=== PATIENT | male | born 1955 | race Caucasian/White ===

== ENCOUNTER 2019-09-28 16:32 | Emergency (ER) | payer MEDICARE, SELFPAY ==
[2019-09-28 16:48] VITALS: BP 180/58; PULSE 77; RESP 16; TEMP 36.6; O2SAT 98
--- NOTE | 2019-09-28 18:12 | ED.WOUNDLAC ---
HPI - Wound/Laceration General Chief Complaint: Wound/Laceration <LORETA Jurado Last Filed: 09/28/19 18:46> Stated Complaint: L HAND LAC <LORETA Jurado Last Filed: 09/28/19 18:46> Time Seen by Provider: 09/28/19 17:12 <LORETA Jurado Last Filed: 09/28/19 18:46> Source: patient <LORETA Jurado Last Filed: 09/28/19 18:46> Mode of arrival: ambulatory <LORETA Jurado Last Filed: 09/28/19 18:46> Limitations: no limitations <LORETA Jurado Last Filed: 09/28/19 18:46> History of Present Illness HPI narrative: This is a 64 year old male that presents to the ER for laceration to the left hand sustained just prior to arrival. Reports he accidentally cut his hand using box cutters. He is unsure of his last tetanus vaccine. Denies fever, numbness, or decreased ROM. <LORETA Jurado Last Filed: 09/28/19 18:46> Related Data Home Medications: Home Medications Medication Instructions Recorded Confirmed fenofibrate micronized mg PO 09/28/19 losartan 09/28/19 metoprolol succinate PO 09/28/19 <LORETA Jurado Last Filed: 09/28/19 18:46> Allergies/Adverse Reactions: Allergies Allergy/AdvReac Type Severity Reaction Status Date / Time No Known Allergies Allergy Unknown Unverified 10/02/14 08:04 <LORETA Jurado Last Filed: 09/28/19 18:46> Review of Systems Review of Systems: Narrative: CONSTITUTIONAL: Denies fever SKIN: Reports laceration MUSCULOSKELETAL: Denies joint pain, or myalgia. NEUROLOGIC: Denies numbness <LORETA Jurado Last Filed: 09/28/19 18:46> All systems reviewed & are unremarkable except as noted in HPI and below <LORETA Jurado Last Filed: 09/28/19 18:46> PMFSH Past Medical History Medical History: Medical History (Updated 09/28/19 @ 18:45 by Sasha Joy PA-C) History of coronary artery disease History of hypertension <Sasha Joy PA-C - Last Filed: 09/28/19 18:46> Exam Narrative: Exam Narrative: GENERAL: Well-appearing, well-nourished, and in no acute distress. HEAD: Normocephalic, atraumatic. EYES: EOMI. EXTREMITIES: Normal range of motion. No edema. Left palm with 3cm linear laceration into subcutaneous tissue over the thenar eminence SKIN: Warm, dry, no rash. NEURO: No focal deficits. Alert and oriented x3. PSYCH: Normal mood and affect <Sasha Joy PA-C - Last Filed: 09/28/19 18:46> Course Vital Signs Vital signs: Vital Signs Temperature 36.6 C 09/28/19 16:48 Pulse Rate 77 09/28/19 16:48 Respiratory Rate 16 09/28/19 16:48 Blood Pressure 180/58 H 09/28/19 16:48 Pulse Oximetry 98 09/28/19 16:48 Temperature 36.6 C 09/28/19 16:48 Pulse Rate 77 09/28/19 16:48 Respiratory Rate 16 09/28/19 16:48 Blood Pressure 180/58 H 09/28/19 16:48 Pulse Oximetry 98 09/28/19 16:48 <Sasha Joy PA-C - Last Filed: 09/28/19 18:46> Vital Signs Temperature 36.6 C 09/28/19 16:48 Pulse Rate 77 09/28/19 16:48 Respiratory Rate 16 09/28/19 16:48 Blood Pressure 180/58 H 09/28/19 16:48 Pulse Oximetry 98 09/28/19 16:48 Temperature 36.6 C 09/28/19 16:48 Pulse Rate 77 09/28/19 16:48 Respiratory Rate 16 09/28/19 16:48 Blood Pressure 180/58 H 09/28/19 16:48 Pulse Oximetry 98 09/28/19 16:48 <Michelle Wahl MD - Last Filed: 09/28/19 22:06> Procedures Laceration Laceration 1: Date: 09/28/19 <Sasha Joy PA-C - Last Filed: 09/28/19 18:46> Time: 18:43 <LORETA Jurado Last Filed: 09/28/19 18:46> Site: hand <LORETA Jurado Last Filed: 09/28/19 18:46> Side (If applicable): left <LORETA Jurado Last Filed: 09/28/19 18:46> Size (cm): 3 <LORETA Jurado Last Filed: 09/28/19 18:46> Description: linear <LORETA Jurado Last Filed:
[2019-09-28] MEDS: TETANUS,DIPHTHERIA,AC PERTUSSIS ADULT (0.5 ML) BOOSTRIX IM (18:51)
== END 2019-09-28 19:17 | disposition home or self-care (01) ==
PROVIDERS: Emergency Provider Emergency Medicine
DX: S61.412A Laceration without foreign body of left hand, initial encounter (principal); I25.10 Atherosclerotic heart disease of native coronary artery without angina pectoris; I10 Essential (primary) hypertension; Z23 Encounter for immunization; W27.0XXA Contact with workbench tool, initial encounter
CPT/HCPCS: 12002; 90471; 90715; 99283

== ENCOUNTER 2020-03-28 15:14 | Outpatient (CLI) | payer MEDICARE, SELFPAY ==
[2020-03-28 16:06] LABS: Basophils Absolute Auto 0.1 K/mm3 (0.0-0.1); Basophils Percent Auto 0.7 % (0.2-1.2); Eosinophils Absolute Auto 0.4 K/mm3 (0-0.3); Eosinophils Percent Auto 5.4 % (0-4.4); Hematocrit 44.8 % (42.0-52.0); Hemoglobin 15.9 g/dL (14.0-18.0); Immature Granulocyte Absolute 0.03 K/mm3 (0.00-0.031); Immature Granulocyte Percent A 0.4 % (0-0.5); Lymphocytes Absolute Auto 1.26 K/mm3 (0.9-3.2); Lymphocytes Percent Auto 18.4 % (18.3-44.2); Mean Corpuscular HGB Conc 35.5 g/dl (32-36); Mean Corpuscular Volume 87.3 fl (80-100); Mean Platelet Volume 10.4 fl (7.4-10.4); Monocytes Absolute Auto 0.7 K/mm3 (0.1-0.6); Monocytes Percent Auto 10.1 % (2.6-8.5); Neutrophils Absolute Auto 4.5 K/mm3 (1.3-6.7); Platelet Count Result 195 k/mm3 (150-375); Red Blood Count 5.13 M/mm3 (4.6-6.20); White Blood Count 6.9 K/mm3 (4.5-10.0)
[2020-03-28 16:17] LABS: Anion Gap 9 mmol/L (8-16); Blood Urea Nitrogen 13 mg/dL (9-20); Calcium 9.1 mg/dL (8.4-10.2); Carbon Dioxide 25 mmol/L (22-30); Chloride 106 mmol/L (98-107); Estimated Glomerular Filt Rate > 60; Glucose 133 mg/dL (75-110); Potassium 4.2 mmol/L (3.4-5.0); Sodium 140 mmol/L (137-145)
== END 2020-03-28 15:15 | disposition home or self-care (01) ==
LOC: ANHLAB 15:18
DX: I25.10 Atherosclerotic heart disease of native coronary artery without angina pectoris (principal)
CPT/HCPCS: 36415; 80048; 85025

== ENCOUNTER 2020-07-23 10:06 | Emergency (ER) | payer MEDICARE, SELFPAY ==
[2020-07-23 10:35] VITALS: BP 163/60; PULSE 83; RESP 18; TEMP 37.2; O2SAT 100
--- NOTE | 2020-07-23 10:37 | ED.EXTPRO ---
HPI - Extremity Problem General Chief complaint: Extremity Problem,Nontraumatic Stated complaint: Right Knee Pain Source: patient and RN notes reviewed Limitations: no limitations History of Present Illness HPI Narrative: The obese patient, who is on several meds and followed by orthopedics, presents with knee pain. Patient states he has about a half a week history since Wednesday, the onset of right lateral joint pain that is mild, worse with motion, better with rest, associated with mild edema. This is similar to prior episode; he has had a prior, opposite left knee replacement in the past & advised he needs the same on the affected joint. No redness, injury known, deformity; patient advised to follow-up with orthopedics-and in the response he tried but cannot get in for a while. Related Data Home Medications Medication Instructions Recorded Confirmed losartan 50 mg PO DAILY 09/28/19 07/23/20 metoprolol succinate 50 mg PO DAILY 09/28/19 07/23/20 aspirin [Adult Low Dose Aspirin] 81 mg PO DAILY 07/23/20 07/23/20 ezetimibe-simvastatin 1 tablet PO DAILY 07/23/20 07/23/20 prasugrel 10 mg PO DAILY 07/23/20 07/23/20 Allergies Allergy/AdvReac Type Severity Reaction Status Date / Time No Known Allergies Allergy Unknown Unverified 10/02/14 08:04 Review of Systems Review of Systems: Narrative: General/Constitutional: No weight loss,fever Eyes: N0: Redness,discharge Ears/Nose/Throat: No: Epistaxis,ear discharge Respiratory: Denies: Hemoptysis Gastrointestinal: No Vomiting, Bleeding-rectal Skin: No Lumps, eruption Neurologic: No Focal Weakness,Sz Hematologic: Denies: Petechiae/Purpura Psychiatric: No: Suicida ideationl All Other Systems: Reviewed and Negative PMFSH Past Medical History Medical History (Updated 07/23/20 @ 11:20 by Robin Dial MD) History of coronary artery disease History of hypertension Comments At time of signature, agree with nursing past medical, surgical, social and family history. There is no relevant family history pertinent to the presenting complaint Exam Narrative: Exam Narrative: General Appearance: Obese/well nourished, No distress EYE: PERRLA, EOMI, Conjunctiva clear Ears: External ear normal, Auditory canal normal Nose: Normal nose, Nares clear Mouth/Throat: Normal appearing, Normal lips: Supple Respiratory: Airway patent, No respiratory distress MS knee: Normal strength (mostly intact, limited flexion/extension by pain), Tenderness ( laterally jt line, with mild decreased ROM), mils swelling (mediallly), Other (no anterior drawer, no collateral laxity, unable to do Lon, pivot shift) Skin: Warm, Dry, Normal color Neurological: A&O x3, Normal affect Course Vital Signs Vital signs: Vital Signs Temperature 98.9 F 07/23/20 10:35 Pulse Rate 83 07/23/20 10:35 Respiratory Rate 18 07/23/20 10:35 Blood Pressure 163/60 H 07/23/20 10:35 Pulse Oximetry 100 07/23/20 10:35 Temperature 98.9 F 07/23/20 10:35 Pulse Rate 83 07/23/20 10:35 Respiratory Rate 18 07/23/20 10:35 Blood Pressure 163/60 H 07/23/20 10:35 Pulse Oximetry 100 07/23/20 10:35 Discharge Plan Discharge Clinical Impression: Derangement of knee, right Knee osteoarthritis Qualifiers: Osteoarthritis type: primary Laterality: bilateral Qualified Code(s): M17.0 - Bilateral primary osteoarthritis of knee Patient Disposition: Home, Self-Care Condition: Stable Instructions: Knee Bursitis (ED) Prescriptions: New acetaminophen-codeine 300-30 mg tablet 1 - 2 tablet PO HS PRN (Reason: pain) Qty: 14 RF: 0 prednisone 20 mg tablet 60 mg PO DAILY Qty: 15 RF: 0 tramadol 50 mg tablet 50 mg PO TID PRN (Reason: pain) Qty: 15 RF: 1 No Action ezetimibe-simvastatin 10-40 mg tablet 1 tablet PO DAILY RF: 0 prasugrel 10 mg tablet 10 mg PO DAILY RF: 0 Adult Low Dose Aspirin 81 mg Tablet 81 mg PO DAILY RF: 0 losartan 50 mg tablet
== END 2020-07-23 10:46 | disposition home or self-care (01) ==
PROVIDERS: Emergency Provider Emergency Medicine
DX: M23.91 Unspecified internal derangement of right knee (principal); M17.0 Bilateral primary osteoarthritis of knee; I25.10 Atherosclerotic heart disease of native coronary artery without angina pectoris; I10 Essential (primary) hypertension; Z95.1 Presence of aortocoronary bypass graft
CPT/HCPCS: 99213; G0463

== ENCOUNTER 2021-04-21 09:59 | Outpatient (CLI) | payer MEDICARE, SELFPAY ==
[2021-04-21 10:31] LABS: Basophils Absolute Auto 0.1 K/mm3 (0.0-0.1); Basophils Percent Auto 0.7 % (0.2-1.2); Eosinophils Absolute Auto 1.2 K/mm3 (0-0.3); Eosinophils Percent Auto 17.4 % (0-4.4); Hemoglobin 16.9 g/dL (14.0-18.0); Immature Granulocyte Absolute 0.02 K/mm3 (0.00-0.031); Immature Granulocyte Percent A 0.3 % (0-0.5); Lymphocytes Absolute Auto 1.05 K/mm3 (0.9-3.2); Lymphocytes Percent Auto 15.6 % (18.3-44.2); Mean Corpuscular HGB Conc 34.5 g/dl (32-36); Mean Corpuscular Hemoglobin 30.8 pg (26-34); Mean Corpuscular Volume 89.4 fl (80-100); Mean Platelet Volume 10.1 fl (7.4-10.4); Monocytes Absolute Auto 0.9 K/mm3 (0.1-0.6); Neutrophils Absolute Auto 3.5 K/mm3 (1.3-6.7); Platelet Count Result 168 k/mm3 (150-375); Red Blood Count 5.48 M/mm3 (4.6-6.20); Red Cell Distribution Width 13.1 % (11.5-14.5); White Blood Count 6.7 K/mm3 (4.5-10.0)
[2021-04-21 10:41] LABS: Anion Gap 6 mmol/L (8-16); Blood Urea Nitrogen 15 mg/dL (9-20); Calcium 9.3 mg/dL (8.4-10.2); Carbon Dioxide 27 mmol/L (22-30); Chloride 105 mmol/L (98-107); Estimated Glomerular Filt Rate > 60; Glucose 131 mg/dL (65-110); Potassium 4.5 mmol/L (3.4-5.0); Sodium 138 mmol/L (137-145)
== END 2021-04-21 10:00 | disposition home or self-care (01) ==
LOC: ANHLAB 10:07
PROVIDERS: Visit Provider Internal Medicine
DX: I25.10 Atherosclerotic heart disease of native coronary artery without angina pectoris (principal)
CPT/HCPCS: 36415; 80048; 85025

== ENCOUNTER 2022-10-08 16:16 | Emergency (ER) | payer MEDICARE, SELFPAY ==
--- NOTE | ~2022-10-08 | CT_ITS ---
EXAMINATION: CTA BRAIN/CAROTID DATE: 10/08/2022 20:13 INDICATION: Right-sided neck pain and headache TECHNIQUE: Computed tomographic angiography (CTA) of the head and neck was performed with 100 mL Omni paque-350 intravenous contrast. Multiplanar reconstructions and maximum intensity projection 3D-recon structions of the carotid arteries and of the intracranial arteries were created by the technologist on a separate workstation. Precontrast CT of the head was also obtained. Automated exposure control and iterative reconstruction technique were employed.The dose-length product was 1975.63 mGy-cm. COMPARISON: None. FINDINGS: Carotid arteries: Aortic arch is normal in caliber with no dissection. There are change of prior median sternotomy and coronary artery bypass grafting. There is 30% stenosis of the right carotid bulb relative to normal d istal artery lumen diameter (NASCET criteria). There is 25% stenosis of the left carotid bulb relativ e to normal distal artery lumen diameter. The visualized upper lungs are clear. Mild mediastinal lymp hadenopathy with largest subcarinal lymph node measuring 1.2 cm maximal short axis diameter. No patho logically enlarged hilar lymphadenopathy. Cervical soft tissues are unremarkable with no pathological ly enlarged lymphadenopathy. Mild cervical spondylosis. Head: No acute intracranial hemorrhage, acute infarction or abnormal extra axial fluid collection. Ventricl es are normal and symmetric. No mass/mass effect. No abnormally enhancing brain lesions identified on postcontrast images. Changes of bilateral intraocular lens replacement. The orbits, paranasal sinuse s and mastoid air cells are normal. Intracranial arteries The vertebral arteries are codominant. There is extensive vascular calcifications at the periphery of the bilateral carotid siphons and at the bilateral intracranial vertebral arteries with no significa nt stenosis of 50% or greater. There is no hemodynamically significant stenosis in the vertebral, bas ilar and internal carotid arteries. There are no aneurysms identified. There is a focal stenosis of a t least 50% near the origin of the left A1 segment. The right A1 and bilateral P1 segments are patent . There is a patent anterior communicating artery. Cerebral arterial arborization appears symmetric. IMPRESSION: 1. 30% stenosis of the right carotid bulb relative to normal distal artery lumen diameter (NASCET cri teria). 2. 25% stenosis of the left carotid bulb relative to normal distal artery lumen diameter. 3. Likely hemodynamically significant stenosis of at least 50% near the origin of the left A1 segment . Of note there does appear to be a patent anterior to indicating artery. No other hemodynamically si gnificant stenosis or aneurysm of the intracranial arteries. 4. No acute intracranial process. 5. Mild mediastinal lymphadenopathy which may be reactive. Reviewed, dictated and finalized at location A. IMPRESSION: 1. 30% stenosis of the right carotid bulb relative to normal distal artery lume n diameter (NASCET criteria). 2. 25% stenosis of the left carotid bulb relative to normal distal artery lumen diameter. 3. Likely hemodynamically significant stenosis of at least 50% near the origin of the left A1 segment. Of note there does appear to be a patent anterior to in dicating artery. No other hemodynamically significant stenosis or aneurysm of t he intracranial arteries. 4. No acute intracranial process. 5. Mild mediastinal lymphadenopathy which may be reactive.
[2022-10-08 16:26] VITALS: BP 148/67; PULSE 71; RESP 19; TEMP 36.8; O2SAT 97
--- NOTE | 2022-10-08 18:40 | ED.HA ---
HPI - Headache General Chief Complaint: Headache <Sully Burns PA-C - Last Filed: 10/08/22 21:36> Stated Complaint: neck pain <Sully Burns PA-C - Last Filed: 10/08/22 21:36> Time Seen by Provider: 10/08/22 18:23 <Sully Burns PA-C - Last Filed: 10/08/22 21:36> History of Present Illness HPI Narrative: 67-year-old male with a history of CAD and hypertension reports for evaluation of right-sided neck pain and right temporal headache that started 3 hours prior to arrival while patient was sitting in his chair watching TV. Patient reports he had a sudden onset sharp pain in the right lateral neck that extended behind his ear and into his jainism. States the sharp pain lasted approximately 2 minutes and now he has a dull ache in his neck and jainism. States the pain was 8/10 at its worst, is now 1.5/10. Reports he has had this happened in the past but usually only lasts a couple seconds. He has been evaluated by his PCP for the same issue and told it is likely muscular. He denies focal numbness or weakness, vision changes, difficulty walking or talking, difficulty swallowing, dizziness, lightheadedness, fever, body aches, chills. Denies trauma to head or neck. <Sully Burns PA-C - Last Filed: 10/08/22 21:36> Related Data Home Medications: Home Medications Medication Instructions Recorded Confirmed losartan 50 mg tablet 50 mg PO DAILY 09/28/19 07/23/20 metoprolol succinate 50 mg 50 mg PO DAILY 09/28/19 07/23/20 tablet,extended release 24 hr aspirin 81 mg tablet 81 mg PO DAILY 07/23/20 07/23/20 ezetimibe 10 mg-simvastatin 40 mg 1 tablet PO DAILY 07/23/20 07/23/20 tablet prasugrel 10 mg tablet 10 mg PO DAILY 07/23/20 07/23/20 <Sully Burns PA-C - Last Filed: 10/08/22 21:36> Allergies/Adverse Reactions: Allergies Allergy/AdvReac Type Severity Reaction Status Date / Time No Known Allergies Allergy Unknown Unverified 10/02/14 08:04 <Sully Burns PA-C - Last Filed: 10/08/22 21:36> Review of Systems Review of Systems: CONSTITUTIONAL: Denies fever, chills EYES: Denies visual changes, redness, or discharge. ENT: Denies rhinorrhea, congestion, sore throat, or otalgia. CARDIOVASCULAR: Denies chest pain, palpitations, or edema. RESPIRATORY: Denies cough or dyspnea. GASTROINTESTINAL: Denies abdominal pain, nausea, vomiting, or diarrhea. GENITOURINARY: Denies dysuria or hematuria. SKIN: Denies rash or itching. MUSCULOSKELETAL: See HPI NEUROLOGIC: See HPI PSYCHIATRIC: Denies anxiety or depression. <Sully Burns PA-C - Last Filed: 10/08/22 21:36> [facility] Past Medical History Medical History: Medical History History of coronary artery disease History of hypertension <Sully Burns PA-C - Last Filed: 10/08/22 21:36> Exam Narrative: GENERAL: Well-appearing, in no acute distress. Patient resting abdomen exam bed. He is pleasant and conversational. HEAD: Normocephalic EYES: PERRLA, EOMI ENT: Nares clear. Mucous membranes moist. Oropharynx without tonsillar hypertrophy exudate or other lesions. NECK: Supple. No midline cervical tenderness, step-offs or deformities. No paraspinous tenderness. There is tenderness to the right anterior lateral aspect of the neck inferior to the jaw. Full range of motion of the neck. No nuchal rigidity. Negative Kernig's and Brudzinski's. CHEST: No respiratory distress. Clear to auscultation, no adventitious breath sounds. HEART: Regular rate and rhythm. No murmur heard. Normal peripheral pulses. ABDOMEN: Soft, nontender, normal active bowel sounds. EXTREMITIES: Normal range of motion. No edema. SKIN: Warm, dry, no rash. NEURO: No focal deficits. Alert and oriented x3. Cranial nerves II through XII intact. Strength 5/5 in BUE and BLE. Normal [id number]. Negative pronator drift. Sensation intact throughout. Radial and DP pulses 2+. PSYCH: No
[2022-10-08 19:00] VITALS: BP 134/60; PULSE 62; RESP 14; O2SAT 98
[2022-10-08] MEDS: KETOROLAC 15 MG/ML VIAL (*BKC) IV PUSH (19:13)
[2022-10-08] MEDS: SODIUM CHLORIDE 0.9% IV 1,000 ML 999 ML IV CONT (19:14)
[2022-10-08 19:31] LABS: Basophils Percent Auto 0.5 % (0.2-1.2); Eosinophils Absolute Auto 0.3 K/mm3 (0-0.3); Eosinophils Percent Auto 3.5 % (0-4.4); Hematocrit 46.7 % (42.0-52.0); Immature Granulocyte Absolute 0.04 K/mm3 (0.00-0.031); Immature Granulocyte Percent A 0.5 % (0-0.5); Lymphocytes Percent Auto 14.3 % (18.3-44.2); Mean Corpuscular HGB Conc 34.3 g/dl (32-36); Mean Corpuscular Hemoglobin 30.1 pg (26-34); Mean Corpuscular Volume 87.8 fl (80-100); Mean Platelet Volume 10.1 fl (7.4-10.4); Monocytes Percent Auto 12.8 % (2.6-8.5); Neutrophils Absolute Auto 5.3 K/mm3 (1.3-6.7); Neutrophils Percent Auto 68.4 % (45.5-73.1); Platelet Count Result 183 k/mm3 (150-375); Red Blood Count 5.32 M/mm3 (4.6-6.20); Red Cell Distribution Width 14.2 % (11.5-14.5); White Blood Count 7.7 K/mm3 (4.5-10.0)
[2022-10-08 19:48] LABS: Alanine Aminotransferase 36 U/L (6-50); Albumin Level 4.4 g/dL (3.5-5.1); Alkaline Phosphatase 69 U/L (38-126); Anion Gap 8 mmol/L (8-16); Aspartate Amino Transferase 40 U/L (17-59); Bilirubin,Total 1.3 mg/dL (0.2-1.3); Blood Urea Nitrogen 14 mg/dL (9-20); Calcium 8.8 mg/dL (8.4-10.2); Carbon Dioxide 26 mmol/L (22-30); Chloride 102 mmol/L (98-107); Estimated Glomerular Filt Rate > 60; Glucose 100 mg/dL (65-110); Potassium 4.7 mmol/L (3.4-5.0); Sodium 136 mmol/L (137-145)
[2022-10-08 21:00] VITALS: BP 150/74; PULSE 80; RESP 19; O2SAT 100
[2022-10-08 21:40] VITALS: BP 132/74; PULSE 88; RESP 19; O2SAT 99
== END 2022-10-08 21:40 | disposition home or self-care (01) ==
PROVIDERS: Emergency Provider Physician Assistant
DX: M54.2 Cervicalgia (principal); R51.9 Headache, unspecified; I25.10 Atherosclerotic heart disease of native coronary artery without angina pectoris; I10 Essential (primary) hypertension; Z79.82 Long term (current) use of aspirin; I65.23 Occlusion and stenosis of bilateral carotid arteries
CPT/HCPCS: 36415; 70496; 70498; 80053; 85025; 96361; 96374; 99284; J1885; J7030; Q9967